=== PATIENT | male | born 1990 | race Two or more races ===

== ENCOUNTER 2017-10-10 19:25 | Emergency (ER) | payer OTHER ==
[~2017-10-10] VITALS: Ht 185.4 cm; Wt 74.8 kg
--- NOTE | 2017-10-10 20:00 | NUR ---
TO BED 8 AMBULATORY WITH MOM C/O N/V SINCE YESTERDAY. PT APPEARS VERY ANXIOUS. PT AAOX4 NO ACUTE DISTRESS NOTED, RESP EVEN AND UNLABORED. PT UNABLE TO PROVIDE URINE SAMPLE AT THIS TIME. PENDING ER MD BURRIS.
--- NOTE | 2017-10-10 20:11 | NUR ---
ER BUBBA SANCHEZ AT BEDSIDE TO EVAL PT WITH ORDERS RECEIVED. WILL CARRY OUT ORDERS.
[2017-10-10 20:21] LABS: BASOPHILS % (AUTO) 0.2 % (0.0-2.0); EOSINOPHILS % (AUTO) 0.6 % (0.0-6.0); HEMATOCRIT 40 % (39-51); HEMOGLOBIN 14.4 g/dL (13.5-17.5); LYMPHOCYTES % (AUTO) 18.5 % (20.0-44.0); MEAN CORPUSCULAR HGB CONC 36 g/dl (31.0-36.0); MEAN CORPUSCULAR VOLUME 88 fL (80-96); MONOCYTES # (AUTO) 0.2 /CMM (0.1-1.30); MONOCYTES % (AUTO) 2.3 % (2.0-12.0); NEUTROPHILS # (AUTO) 8.5 /CMM (1.8-8.9); NEUTROPHILS % (AUTO) 78.4 % (43.0-81.0); PLATELET COUNT (AUTO) 320 /CMM (150-450); RDW COEFFICIENT OF VARIATION 11.5 (11.5-15.0); RED BLOOD CELL COUNT(AUTO) 4.57 MIL/uL (4.5-6.0); WHITE BLOOD COUNT (AUTO) 10.8 K/uL (4.3-11.0)
[2017-10-10] MEDS ORDERED: ONDANSETRON HCL/PF 4 MG/2 ML VIAL ONE (20:26)
[2017-10-10] MEDS ORDERED: FAMOTIDINE/PF INJ 20 MG/2 ML VIAL IV ONE (20:26)
[2017-10-10] MEDS: IV NS 0.9% 1,000 ML BAG IV ONE (20:32)
[2017-10-10] MEDS: FAMOTIDINE/PF INJ 20 MG/2 ML VIAL IV ONE (20:32)
--- NOTE | 2017-10-10 20:32 | NUR ---
RN AT [facility] MEDICATE PT.
[2017-10-10] MEDS: ONDANSETRON HCL/PF 4 MG/2 ML VIAL IVP ONE (20:33)
[2017-10-10 20:46] LABS: INR 1.06 (0.85-1.15)
[2017-10-10 20:57] LABS: ALBUMIN 4.4 g/dL (3.4-5.0); BILIRUBIN,DIRECT 0.2 mg/dL (0.0-0.2); CALCIUM, SERUM 9.7 mg/dL (8.5-10.1); POTASSIUM 3.3 mmol/L (3.5-5.1); TOTAL PROTEIN, SERUM 7.5 g/dL (6.4-8.2)
--- NOTE | 2017-10-10 21:07 | NUR ---
PT AMBULATORY TO THE BATHROOM WITH STEADY GAIT NOTED. PT VERBALIZE RLEIEF OF NAUSEA. WILL CONTINUE TO MONITOR PT CLOSELY.
[2017-10-10 21:52] LABS: APPEARANCE,URINE Clear (CLEAR); BILIRUBIN,URINE Negative (NEGATIVE); BLOOD, URINE Negative Ery/uL (NEGATIVE); COLOR,URINE Yellow (YELLOW); KETONES,URINE 15 (NEGATIVE); LEUKOCYTE ESTERASE ,URINE Negative (NEGATIVE); NITRITE, URINE Negative (NEGATIVE); PH,URINE 8.5 (5.0-8.0); PROTEIN,URINE Negative (NEGATIVE); UGLUCOSE Negative (NEGATIVE); UROBILINOGEN,URINE 0.2 EU/dL (0.2)
[2017-10-10] MEDS ORDERED: LORAZEPAM INJ 2 MG/ML VIAL ONE (22:04)
[2017-10-10] MEDS ORDERED: diphenhydrAMINE HCL 50 MG/ML VIAL ONE (22:07)
[2017-10-10] MEDS: LORAZEPAM INJ 2 MG/ML VIAL IV STA (22:11)
[2017-10-10] MEDS: diphenhydrAMINE HCL 50 MG/ML VIAL IV STA (22:13)
[2017-10-10] MEDS: METOCLOPRAMIDE HCL 10 MG/2 ML VIAL IV ONE (22:22)
[2017-10-10 22:28] VITALS: BP 137/75
--- NOTE | 2017-10-10 22:28 | NUR ---
IV removed. Catheter intact and site benign. Pressure and 4x4 applied to site. No bleeding noted. Patient discharged to home in stable condition. Written and verbal after care instructions given. Patient verbalizes understanding of instruction. ambulatory with a steady gait noted. pt aaox4 no acute distress noted, resp even and unlabored. advice pt not to drive or operate any machinery due to pt was given narcotic medicine. pt verbalize understanding. pt family member at bedside to take pt home.
== END 2017-10-10 22:29 | disposition home or self-care (01) ==
LOC: ER 19:28
DX: R19.7 Diarrhea, unspecified (principal); R11.0 Nausea; F31.9 Bipolar disorder, unspecified
CPT/HCPCS: 36415; 80048-TC; 80076-TC; 81000-TC; 83690-TC; 85025-TC; 85730-TC; A4606; J1200; J2060; J2405; J3490; J7030; Z7610